=== PATIENT | male | born 1950 | race Hispanic/Latino ===

== ENCOUNTER 2023-10-13 09:13 | Outpatient (CLI) | payer OTHER | END 2023-10-13 09:14 | disposition home or self-care (01) | LOC: BICRAD 09:13 | PROVIDERS: ATTEND Physician Assistant Medical | DX: R10.84 Generalized abdominal pain (principal); R19.7 Diarrhea, unspecified; R60.9 Edema, unspecified; Z86.73 Personal history of transient ischemic attack (TIA), and cerebral infarction without residual deficits | CPT/HCPCS: 74018 ==

== ENCOUNTER 2023-10-14 10:49 | Inpatient (IN) | payer OTHER ==
[~2023-10-14 10:49] MED LIST: GASTROGRAFIN 30 ML BOT ONE; Iopamidol 370 76% 100 ML VIAL ONE
[2023-10-14 11:49] LABS: #Basophils 0.1 thou/uL (0.0-0.2); #Monocytes 0.6 thou/uL (0.11-0.59); #Neutrophils 16.7 thou/uL (1.40-6.50); %Basophils 0.3 % (0.0-1.0); %Eosinophils 0.1 % (0.0-10.0); %Lymphocytes 5.8 % (21.0-51.0); %Neutrophils 90.2 % (42.0-75.0); Hematocrit 48.8 % (42.0-52.0); Hemoglobin 15.8 g/dL (14.0-18.0); Mean Corpuscular HGB CONC 32.4 g/dL (32.0-36.0); Mean Corpuscular Hemoglobin 27.1 pg (27.0-31.0); Mean Corpuscular Volume 83.8 fl (78.0-98.0); Mean Platelet Volume 9.9 fL (7.4-10.4); Platelet Count 502 10x3/uL (130-400); RBC Distribution Width 18.9 % (11.5-14.5); Red Blood Cell (RBC) Count 5.82 mill/uL (4.70-6.10); White Blood Cell (WBC) Count 18.5 10x3/uL (4.8-10.8)
[2023-10-14] MEDS ORDERED: Morphine 4 MG/ML VIAL ONE (12:10)
[2023-10-14 12:13] LABS: Troponin I Less than 0.010 ng/mL (< 0.028)
[2023-10-14 12:14] LABS: ALT (SGPT) 10 U/L (8-55); AST (SGOT) 32 U/L (5-34); Albumin 2.4 g/dL (3.4-4.8); Alkaline Phosphatase 149 U/L (40-110); Anion Gap 21 mmol/L (10-20); BUN (Urea Nitrogen) 28 mg/dL (8.4-25.7); Bilirubin, Total 0.7 mg/dL (0.2-1.2); Calc. Creatinine Clearance 0 mL/min (70-130); Calcium 8.5 mg/dL (7.8-10.44); Carbon Dioxide 22 mmol/L (23-31); Chloride 93 mmol/L (98-107); Estimated GFR 66; Globulin 4.6 g/dL (2.4-3.5); Glucose 85 mg/dL (83-110); Lipase 25 U/L (8-78); Potassium 4.9 mmol/L (3.5-5.1); Sodium 131 mmol/L (136-145)
[2023-10-14 13:22] LABS: Critical Call Chem-Lactate NUR.LH8 @1320
[2023-10-14] MEDS ORDERED: Ondansetron ODT 4 MG TAB PO PRN (13:46)
[2023-10-14] MEDS ORDERED: Senokot S 8.6-50 MG TAB PO PRN (13:46)
[2023-10-14] MEDS ORDERED: Bisacodyl 5 MG TAB PO PRN (13:46)
[2023-10-14] MEDS ORDERED: Cefepime 2 GM VIAL ONE (14:49)
[2023-10-14] MEDS ORDERED: Sodium Chloride 0.9% 100 ML ONE (14:49)
[2023-10-14] MEDS ORDERED: HumaLOG 300 UNITS/3 ML VIAL SC PRN ×2 (14:57)
[2023-10-14] MEDS ORDERED: Dextrose 50% Abboject 50 ML SYRINGE SLOW IVP PRN (14:57)
[2023-10-14] MEDS ORDERED: Glucagon 1 MG/ML KIT IM PRN (14:57)
[2023-10-14] MEDS ORDERED: Dextrose 5% in Water 1,000 ML IV PRN (14:57)
[2023-10-14 15:31] LABS: Actual Bicarbonate (HCO3v) 24.8 mEq/L (22-28); Base Excess -0.2 mEq/L (-2.0 to +3.0); Calcium, Ionized (venous) 0.97 mmol/L (1.16-1.32); Chloride (VBG) 94 mmol/L (98-106); Hematocrit-VBG 42 % (42.0-52.0); Hemoglobin (Hb) 14.4 g/dL (12.6-17.4); Potassium (VBG) 4.71 mmol/L (3.70-5.30)
[2023-10-14] MEDS ORDERED: metroNIDAZOLE 500 MG in Premix 1 BAG IVPB SCH (16:00)
[2023-10-14 16:04] LABS: Lactic Acid 2.9 mmol/L (0.5-2.2)
[2023-10-14 16:13] LABS: Phosphorus 4.7 mg/dL (2.3-4.7)
[2023-10-14 16:14] LABS: Bilirubin, Total 0.5 mg/dL (0.2-1.2); Magnesium 1.6 mg/dL (1.6-2.6)
[2023-10-14 16:24] LABS: INR-International Normal Ratio 1.6; Prothrombin Time 19.2 sec (12.0-14.7)
[2023-10-14 16:25] LABS: PTT 45.7 sec (22.9-36.1)
[2023-10-14] MEDS ORDERED: Sodium Chloride 0.9% 500 ML IV SCH (18:30)
[2023-10-14] MEDS ORDERED: NOREPINEPHRINE 8 MG/250 ML-D5W 250 ML IVPB SCH (18:30)
[2023-10-14] MEDS ORDERED: Magnesium 2 GM/50 ML BAG (IN WATER) ONE ×2 (18:31→23:45)
[2023-10-14] MEDS ORDERED: Acetaminophen 325 MG TAB ONE (18:31)
[2023-10-14] MEDS ORDERED: metroNIDAZOLE 500 MG (100 mL) BAG ONE ×2 (18:32→23:50)
[2023-10-14] MEDS: metroNIDAZOLE 500 MG in Premix 1 BAG IVPB SCH (18:36)
[2023-10-14] MEDS: Acetaminophen 325 MG TAB PO PRN (18:42)
[2023-10-14 18:46] LABS: Lactic Acid 2.4 mmol/L (0.5-2.2)
[2023-10-14 20:26] LABS: Lactic Acid 2.8 mmol/L (0.5-2.2)
[2023-10-14 20:35] LABS: Troponin I 0.041 ng/mL (< 0.028)
[2023-10-14] MEDS ORDERED: Enoxaparin 40 MG (0.4 mL) SYRINGE SC SCH (21:00)
[2023-10-14] MEDS ORDERED: Vancomycin 1 GM in Premix 1 BAG IVPB SCH (21:00)
[2023-10-14] MEDS ORDERED: Enoxaparin 100 MG (1 mL) SYRINGE ONE (21:37)
[2023-10-14] MEDS ORDERED: HYDROcodone/Acetaminophen 5/325 mg Tablet ONE (21:37)
[2023-10-14] MEDS ORDERED: Famotidine 20 MG TAB ONE (21:37)
[2023-10-14] MEDS: Vancomycin (BATCH) 2 GM in Premix 1 BAG IVPB SCH (21:45)
[2023-10-14] MEDS: Magnesium 2 GM/50 ML(in water) 2 GM in Premix 1 BAG IVPB SCH (21:45)
[2023-10-14] MEDS: HYDROcodone/Acetaminophen 5/325 mg Tablet PO PRN (21:46)
[2023-10-14] MEDS: Famotidine 20 MG TAB PO SCH (21:46)
[2023-10-14] MEDS: Enoxaparin 100 MG (1 mL) SYRINGE SC SCH (21:47)
[2023-10-14] MEDS ORDERED: Magnesium 2 GM/50 ML(in water) 2 GM in Premix 1 BAG IVPB SCH (23:30)
[2023-10-14] MEDS: Midodrine HCl 5 MG TAB PO SCH (23:54)
[2023-10-14] MEDS: Albumin 25% 25 GM (100 mL) BOT IVPB SCH (23:54)
[2023-10-15 00:05] LABS: Bacteria/HPF None Seen HPF (None Seen); Bilirubin Negative (Negative); Blood, Urine Negative (Negative); Clarity Turbid (Clear); Glucose, Urine (Dipstick) Normal (Negative); Ketone, Urine Trace mg/dL (Negative); Leukocyte Negative Leu/uL (Negative); Nitrite Negative (Negative); Protein, Urine (Dipstick) 30 mg/dL (Neg-Trace); Squamous Epithelial 0-3 HPF (0-3); Transitional Epithelial 0-3 HPF (None Seen); Urobilinogen Normal mg/dL (Less than 2); WBC/HPF 21-50 HPF (0-3); pH, Urine 5.5 (5.0-9.0)
[2023-10-15 00:09] LABS: Specific Gravity, Urine 1.046 (1.002-1.036)
[2023-10-15 01:11] LABS: Troponin I 0.048 ng/mL (< 0.028)
[2023-10-15] MEDS ORDERED: Cefepime 1 GM VIAL ONE (02:54)
[2023-10-15] MEDS ORDERED: Sodium Chloride 0.9% 100 ML ONE (02:59)
[2023-10-15] MEDS: Cefepime 1 GM in Sodium Chloride 0.9% 100 ML IVPB SCH (03:02)
[2023-10-15 05:01] LABS: #Monocytes 0.6 thou/uL (0.11-0.59); #Neutrophils 17.4 thou/uL (1.40-6.50); %Basophils 0.2 % (0.0-1.0); %Eosinophils 0.1 % (0.0-10.0); %Lymphocytes 4.8 % (21.0-51.0); %Monocytes 3.2 % (0.0-10.0); %Neutrophils 91.3 % (42.0-75.0); Mean Corpuscular HGB CONC 33.3 g/dL (32.0-36.0); Mean Corpuscular Hemoglobin 27.8 pg (27.0-31.0); Mean Corpuscular Volume 83.3 fl (78.0-98.0); Mean Platelet Volume 9.5 fL (7.4-10.4); RBC Distribution Width 17.9 % (11.5-14.5); Red Blood Cell (RBC) Count 3.96 mill/uL (4.70-6.10); White Blood Cell (WBC) Count 19.1 10x3/uL (4.8-10.8)
[2023-10-15 05:06] LABS: Platelet Count 363 10x3/uL (130-400)
[2023-10-15 05:50] LABS: Troponin I 0.046 ng/mL (< 0.028)
[2023-10-15 06:37] LABS: ALT (SGPT) 8 U/L (8-55); AST (SGOT) 19 U/L (5-34); Albumin 2.3 g/dL (3.4-4.8); Alkaline Phosphatase 104 U/L (40-110); Anion Gap 16 mmol/L (10-20); BUN (Urea Nitrogen) 30 mg/dL (8.4-25.7); Bilirubin, Total 0.8 mg/dL (0.2-1.2); Calc. Creatinine Clearance 72 mL/min (70-130); Calcium 7.6 mg/dL (7.8-10.44); Carbon Dioxide 21 mmol/L (23-31); Chloride 97 mmol/L (98-107); Estimated GFR 65; Globulin 2.9 g/dL (2.4-3.5); Glucose 50 mg/dL (83-110); Potassium 4.4 mmol/L (3.5-5.1); Protein, Total 5.2 g/dL (5.8-8.1); Sodium 130 mmol/L (136-145)
[2023-10-15] MEDS: Aspirin 81 mg Enteric Coated Tablet PO SCH (08:28)
[2023-10-15] MEDS: Vancomycin (BATCH) 1.25 GM in Premix 1 BAG IVPB SCH (08:39)
[2023-10-15 19:25] LABS: Fluid, Protein 3.4 g/dL (Not Available)
[2023-10-15 19:37] LABS: RBC Count-Automated (BF) 197459 /cu.mm; WBC/Nucleated-Auto (BF) 554 /cu.mm
[2023-10-15] MEDS: Midodrine HCl 5 MG TAB PO SCH (20:06)
[2023-10-15 20:29] LABS: BF Color Red; Body Fluid Source Ascites Body Fluid; Clarity Cloudy/Turbid (Clear); Tube # EDTA
[2023-10-15 20:31] LABS: BF Segmented Neutrophils 56 %; Cell Count Non Hematic 34 %; Lymphocytes 10 %
[2023-10-16 06:36] LABS: #Eosinphils 0.1 thou/uL (0.0-0.7); #Monocytes 0.5 thou/uL (0.11-0.59); %Basophils 0.2 % (0.0-1.0); %Eosinophils 0.4 % (0.0-10.0); %Lymphocytes 4.2 % (21.0-51.0); %Monocytes 3.2 % (0.0-10.0); %Neutrophils 91.5 % (42.0-75.0); Hemoglobin 11.9 g/dL (14.0-18.0); Mean Corpuscular HGB CONC 33.1 g/dL (32.0-36.0); Mean Corpuscular Hemoglobin 27.4 pg (27.0-31.0); Mean Corpuscular Volume 82.9 fl (78.0-98.0); Mean Platelet Volume 9.7 fL (7.4-10.4); Platelet Count 341 10x3/uL (130-400); Red Blood Cell (RBC) Count 4.34 mill/uL (4.70-6.10); White Blood Cell (WBC) Count 14.2 10x3/uL (4.8-10.8)
[2023-10-16 06:55] LABS: ALT (SGPT) 8 U/L (8-55); AST (SGOT) 21 U/L (5-34); Albumin 2.5 g/dL (3.4-4.8); Alkaline Phosphatase 135 U/L (40-110); Anion Gap 13 mmol/L (10-20); BUN (Urea Nitrogen) 27 mg/dL (8.4-25.7); Bilirubin, Total 0.6 mg/dL (0.2-1.2); Calc. Creatinine Clearance 67 mL/min (70-130); Calcium 7.6 mg/dL (7.8-10.44); Carbon Dioxide 22 mmol/L (23-31); Chloride 98 mmol/L (98-107); Estimated GFR 62; Globulin 2.7 g/dL (2.4-3.5); Glucose 66 mg/dL (83-110); Magnesium 2.1 mg/dL (1.6-2.6); Potassium 3.6 mmol/L (3.5-5.1); Protein, Total 5.2 g/dL (5.8-8.1); Sodium 129 mmol/L (136-145)
[2023-10-16 08:33] LABS: Vancomycin, Trough 26.5 ug/mL
[2023-10-16 13:12] VITALS: BMI 30.4
[2023-10-17 06:14] LABS: #Monocytes 0.5 thou/uL (0.11-0.59); #Neutrophils 11.2 thou/uL (1.40-6.50); %Basophils 0.2 % (0.0-1.0); %Eosinophils 0.2 % (0.0-10.0); %Lymphocytes 6.1 % (21.0-51.0); %Monocytes 3.7 % (0.0-10.0); %Neutrophils 89.3 % (42.0-75.0); Hematocrit 41.7 % (42.0-52.0); Hemoglobin 13.6 g/dL (14.0-18.0); Mean Corpuscular HGB CONC 32.6 g/dL (32.0-36.0); Mean Corpuscular Hemoglobin 27.3 pg (27.0-31.0); Mean Corpuscular Volume 83.7 fl (78.0-98.0); Mean Platelet Volume 10.2 fL (7.4-10.4); Platelet Count 377 10x3/uL (130-400); RBC Distribution Width 18.6 % (11.5-14.5); Red Blood Cell (RBC) Count 4.98 mill/uL (4.70-6.10); White Blood Cell (WBC) Count 12.5 10x3/uL (4.8-10.8)
[2023-10-17 06:30] LABS: INR-International Normal Ratio 1.4; Prothrombin Time 17.6 sec (12.0-14.7)
[2023-10-17 06:44] LABS: ALT (SGPT) 9 U/L (8-55); AST (SGOT) 24 U/L (5-34); Albumin 2.3 g/dL (3.4-4.8); Alkaline Phosphatase 433 U/L (40-110); Anion Gap 14 mmol/L (10-20); BUN (Urea Nitrogen) 30 mg/dL (8.4-25.7); Bilirubin, Total 0.8 mg/dL (0.2-1.2); Calc. Creatinine Clearance 53 mL/min (70-130); Calcium 7.7 mg/dL (7.8-10.44); Carbon Dioxide 23 mmol/L (23-31); Chloride 97 mmol/L (98-107); Estimated GFR 46; Globulin 3.2 g/dL (2.4-3.5); Glucose 83 mg/dL (83-110); Protein, Total 5.5 g/dL (5.8-8.1); Sodium 130 mmol/L (136-145)
[2023-10-17 08:51] LABS: Vancomycin, Random 24.5 ug/mL (See Comment)
[2023-10-17] MEDS ORDERED: Vancomycin (BATCH) 1.25 GM in Premix 1 BAG IVPB SCH (09:00)
[2023-10-17] MEDS ORDERED: Vancomycin 1 GM in Premix 1 BAG IVPB SCH (12:00)
[2023-10-17] MEDS: Sodium Chloride 0.9% 1,000 ML IV SCH (13:28)
[2023-10-17 13:44] LABS: RBC Count-Automated (BF) 3043 /cu.mm; WBC/Nucleated-Auto (BF) 990 /cu.mm
[2023-10-17] MEDS: Morphine 2 MG/ML VIAL SLOW IVP SCH (13:55)
[2023-10-17 14:01] LABS: BF Color Yellow; Body Fluid Source Ascites Body Fluid; Clarity Hazy (Clear); Tube # EDTA
[2023-10-17] MEDS ORDERED: Polyethylene Glycol 3350 17 GM Packet PO PRN (14:02)
[2023-10-17 14:05] LABS: BF Segmented Neutrophils 34 %; Cell Count Non Hematic 14 %; Eosinophils 1 %; Lymphocytes 49 %
[2023-10-17] MEDS: Albumin 25% 25 GM (100 mL) BOT IVPB SCH (14:46)
[2023-10-17] MEDS: Vancomycin 1 GM in Premix 1 BAG IVPB SCH (20:45)
[2023-10-17] MEDS: Senokot S 8.6-50 MG TAB PO SCH (20:45)
[2023-10-18 04:38] LABS: #Monocytes 0.5 thou/uL (0.11-0.59); #Neutrophils 8.4 thou/uL (1.40-6.50); %Basophils 0.2 % (0.0-1.0); %Eosinophils 0.4 % (0.0-10.0); %Lymphocytes 7.5 % (21.0-51.0); %Monocytes 5.5 % (0.0-10.0); Hematocrit 33.2 % (42.0-52.0); Hemoglobin 11.1 g/dL (14.0-18.0); Mean Corpuscular HGB CONC 33.4 g/dL (32.0-36.0); Mean Corpuscular Hemoglobin 27.6 pg (27.0-31.0); Mean Corpuscular Volume 82.6 fl (78.0-98.0); Mean Platelet Volume 10.3 fL (7.4-10.4); Platelet Count 302 10x3/uL (130-400); RBC Distribution Width 18.2 % (11.5-14.5); Red Blood Cell (RBC) Count 4.02 mill/uL (4.70-6.10); White Blood Cell (WBC) Count 9.7 10x3/uL (4.8-10.8)
[2023-10-18 05:09] LABS: ALT (SGPT) 10 U/L (8-55); AST (SGOT) 22 U/L (5-34); Albumin 2.3 g/dL (3.4-4.8); Alkaline Phosphatase 602 U/L (40-110); Anion Gap 13 mmol/L (10-20); BUN (Urea Nitrogen) 31 mg/dL (8.4-25.7); Bilirubin, Total 0.6 mg/dL (0.2-1.2); Calc. Creatinine Clearance 52 mL/min (70-130); Calcium 7.6 mg/dL (7.8-10.44); Carbon Dioxide 22 mmol/L (23-31); Chloride 98 mmol/L (98-107); Estimated GFR 45; Globulin 2.4 g/dL (2.4-3.5); Glucose 90 mg/dL (83-110); Potassium 3.8 mmol/L (3.5-5.1); Protein, Total 4.7 g/dL (5.8-8.1); Sodium 129 mmol/L (136-145)
[2023-10-18] MEDS: Albumin 25% 25 GM (100 mL) BOT IVPB SCH (17:00)
[2023-10-18] MEDS: Sodium Chloride 0.9% 100 ML ONE (17:01)
[2023-10-18] MEDS: Heparin 5,000 UNITS/ML VIAL SC SCH (21:51)
[2023-10-19 05:12] LABS: #Eosinphils 0.1 thou/uL (0.0-0.7); #Monocytes 0.5 thou/uL (0.11-0.59); #Neutrophils 8.5 thou/uL (1.40-6.50); %Basophils 0.4 % (0.0-1.0); %Eosinophils 0.6 % (0.0-10.0); %Lymphocytes 7.8 % (21.0-51.0); %Neutrophils 85.8 % (42.0-75.0); Hematocrit 37.8 % (42.0-52.0); Hemoglobin 12.4 g/dL (14.0-18.0); Mean Corpuscular HGB CONC 32.8 g/dL (32.0-36.0); Mean Corpuscular Hemoglobin 27.2 pg (27.0-31.0); Mean Corpuscular Volume 82.9 fl (78.0-98.0); Mean Platelet Volume 9.7 fL (7.4-10.4); Platelet Count 286 10x3/uL (130-400); RBC Distribution Width 18.8 % (11.5-14.5); Red Blood Cell (RBC) Count 4.56 mill/uL (4.70-6.10); White Blood Cell (WBC) Count 9.9 10x3/uL (4.8-10.8)
[2023-10-19 05:36] LABS: ALT (SGPT) 8 U/L (8-55); AST (SGOT) 19 U/L (5-34); Albumin 2.7 g/dL (3.4-4.8); Alkaline Phosphatase 576 U/L (40-110); Anion Gap 11 mmol/L (10-20); BUN (Urea Nitrogen) 28 mg/dL (8.4-25.7); Bilirubin, Total 0.7 mg/dL (0.2-1.2); Calc. Creatinine Clearance 59 mL/min (70-130); Carbon Dioxide 21 mmol/L (23-31); Chloride 98 mmol/L (98-107); Estimated GFR 49; Globulin 2.2 g/dL (2.4-3.5); Glucose 106 mg/dL (83-110); Magnesium 1.9 mg/dL (1.6-2.6); Potassium 3.6 mmol/L (3.5-5.1); Protein, Total 4.9 g/dL (5.8-8.1); Sodium 126 mmol/L (136-145)
[2023-10-19] MEDS: K-Phos Neutral 250 MG TAB PO SCH (08:58)
[2023-10-19] MEDS: Famotidine 20 MG TAB PO SCH (09:03)
[2023-10-19] MEDS: Sodium Chloride 1 GM TAB PO SCH (09:06)
[2023-10-19] MEDS ORDERED: Senokot S 8.6-50 MG TAB PO PRN (11:05)
[2023-10-19] MEDS ORDERED: Morphine 2 MG/ML VIAL SLOW IVP PRN (11:07)
[2023-10-19] MEDS: Magnesium 2 GM/50 ML(in water) 2 GM in Premix 1 BAG IVPB SCH (12:30)
[2023-10-19] MEDS: Potassium Phosphate 30 MMOL in Sodium Chloride 0.9% 250 ML 250 ML IVPB SCH (15:03)
[2023-10-20 05:58] LABS: #Eosinphils 0.1 thou/uL (0.0-0.7); #Monocytes 0.5 thou/uL (0.11-0.59); #Neutrophils 10.5 thou/uL (1.40-6.50); %Basophils 0.3 % (0.0-1.0); %Eosinophils 0.6 % (0.0-10.0); %Lymphocytes 6.7 % (21.0-51.0); %Monocytes 3.9 % (0.0-10.0); Hematocrit 41.2 % (42.0-52.0); Hemoglobin 13.6 g/dL (14.0-18.0); Mean Corpuscular Hemoglobin 27.8 pg (27.0-31.0); Mean Corpuscular Volume 84.3 fl (78.0-98.0); Mean Platelet Volume 10.1 fL (7.4-10.4); Platelet Count 270 10x3/uL (130-400); Red Blood Cell (RBC) Count 4.89 mill/uL (4.70-6.10); White Blood Cell (WBC) Count 11.9 10x3/uL (4.8-10.8)
[2023-10-20 06:30] LABS: ALT (SGPT) 10 U/L (8-55); AST (SGOT) 17 U/L (5-34); Albumin 2.8 g/dL (3.4-4.8); Alkaline Phosphatase 478 U/L (40-110); Anion Gap 11 mmol/L (10-20); BUN (Urea Nitrogen) 24 mg/dL (8.4-25.7); Bilirubin, Total 0.7 mg/dL (0.2-1.2); Calc. Creatinine Clearance 66 mL/min (70-130); Calcium 8.2 mg/dL (7.8-10.44); Carbon Dioxide 23 mmol/L (23-31); Chloride 100 mmol/L (98-107); Estimated GFR 56; Globulin 2.3 g/dL (2.4-3.5); Glucose 116 mg/dL (83-110); Phosphorus 2.1 mg/dL (2.3-4.7); Potassium 3.5 mmol/L (3.5-5.1); Protein, Total 5.1 g/dL (5.8-8.1); Sodium 130 mmol/L (136-145)
[2023-10-20] MEDS: Potassium Phosphate 30 MMOL in Sodium Chloride 0.9% 500 ML IVPB SCH (10:15)
[2023-10-20] MEDS ORDERED: Senokot S 8.6-50 MG TAB PO PRN (10:45)
[2023-10-21 06:52] LABS: #Basophils 0.1 thou/uL (0.0-0.2); #Eosinphils 0.1 thou/uL (0.0-0.7); #Monocytes 0.7 thou/uL (0.11-0.59); %Basophils 0.6 % (0.0-1.0); %Eosinophils 0.5 % (0.0-10.0); %Lymphocytes 10.1 % (21.0-51.0); %Monocytes 5.1 % (0.0-10.0); Hematocrit 47.8 % (42.0-52.0); Hemoglobin 15.4 g/dL (14.0-18.0); Mean Corpuscular HGB CONC 32.2 g/dL (32.0-36.0); Mean Corpuscular Hemoglobin 27.1 pg (27.0-31.0); Mean Corpuscular Volume 84.2 fl (78.0-98.0); Mean Platelet Volume 10.1 fL (7.4-10.4); Platelet Count 248 10x3/uL (130-400); RBC Distribution Width 20.5 % (11.5-14.5); Red Blood Cell (RBC) Count 5.68 mill/uL (4.70-6.10); White Blood Cell (WBC) Count 13.2 10x3/uL (4.8-10.8)
[2023-10-21 07:40] LABS: AST (SGOT) 20 U/L (5-34); Albumin 2.6 g/dL (3.4-4.8); Alkaline Phosphatase 463 U/L (40-110); Anion Gap 16 mmol/L (10-20); BUN (Urea Nitrogen) 29 mg/dL (8.4-25.7); Bilirubin, Total 0.8 mg/dL (0.2-1.2); Calc. Creatinine Clearance 62 mL/min (70-130); Calcium 8.4 mg/dL (7.8-10.44); Carbon Dioxide 16 mmol/L (23-31); Chloride 105 mmol/L (98-107); Estimated GFR 51; Globulin 2.7 g/dL (2.4-3.5); Glucose 155 mg/dL (83-110); Phosphorus 3.4 mg/dL (2.3-4.7); Potassium 4.2 mmol/L (3.5-5.1); Protein, Total 5.3 g/dL (5.8-8.1); Sodium 133 mmol/L (136-145)
[2023-10-21 08:30] LABS: ALT (SGPT) 10 U/L (8-55)
[2023-10-21] MEDS ORDERED: Polyethylene Glycol 3350 17 GM Packet PO PRN (14:00)
[2023-10-21] MEDS: Sodium Bicarbonate Tab 325 MG TAB PO SCH (15:23)
[2023-10-21] MEDS: K-Phos Neutral 250 MG TAB PO SCH (17:19)
[2023-10-21] MEDS: Albumin 25% 25 GM (100 mL) BOT IVPB SCH (17:52)
[2023-10-22 07:25] LABS: #Eosinphils 0.1 thou/uL (0.0-0.7); #Monocytes 0.5 thou/uL (0.11-0.59); %Basophils 0.4 % (0.0-1.0); %Eosinophils 1.2 % (0.0-10.0); %Lymphocytes 7.2 % (21.0-51.0); %Monocytes 5.7 % (0.0-10.0); %Neutrophils 84.9 % (42.0-75.0); Mean Corpuscular Hemoglobin 27.8 pg (27.0-31.0); Mean Corpuscular Volume 84.4 fl (78.0-98.0); Mean Platelet Volume 10.2 fL (7.4-10.4); Platelet Count 183 10x3/uL (130-400); RBC Distribution Width 19.8 % (11.5-14.5); Red Blood Cell (RBC) Count 4.17 mill/uL (4.70-6.10); White Blood Cell (WBC) Count 9.5 10x3/uL (4.8-10.8)
[2023-10-22 07:36] LABS: Hematocrit 35.2 % (42.0-52.0); Hemoglobin 11.6 g/dL (14.0-18.0)
[2023-10-22 07:45] LABS: Anion Gap 14 mmol/L (10-20); BUN (Urea Nitrogen) 31 mg/dL (8.4-25.7); Calc. Creatinine Clearance 63 mL/min (70-130); Calcium 8.5 mg/dL (7.8-10.44); Carbon Dioxide 20 mmol/L (23-31); Chloride 104 mmol/L (98-107); Estimated GFR 53; Glucose 123 mg/dL (83-110); Potassium 3.7 mmol/L (3.5-5.1); Sodium 134 mmol/L (136-145)
[2023-10-22] MEDS ORDERED: PROPOFOL 20 ML ONE (11:29)
[2023-10-22] MEDS ORDERED: Lidocaine 2% PF 5 ML VIAL ONE ×2 (11:29→11:43)
[2023-10-22] MEDS ORDERED: EPINEPHrine 1 MG/ML VIAL ONE (11:43)
[2023-10-22] MEDS ORDERED: Bupivacaine 0.25% HCL 30 ML VIAL ONE (11:43)
[2023-10-22] MEDS ORDERED: Ondansetron PF 4 MG/2 ML Vial ONE (12:14)
[2023-10-22] MEDS ORDERED: ePHEDrine Sulfate 50 MG/10 ML VIAL ONE (12:14)
[2023-10-23 04:21] VITALS: TEMP 97.6
[2023-10-23 16:50] VITALS: BP 115/74
== END 2023-10-23 17:37 | disposition home health service (06) | DRG 854 ==
LOC: ERS 10:49 → ERHOLD 13:40 → IMCU/EMU 10-15 07:55 → 2NO 10-18 00:32 → MSONC 10-19 15:10
PROVIDERS: ADMIT Internal Medicine; ATTEND Internal Medicine
PROC: 3E033XZ Introduction of Vasopressor into Peripheral Vein, Percutaneous Approach (ICD-10-PCS; 2023-10-14)
PROC: 3E03329 Introduction of Other Anti-infective into Peripheral Vein, Percutaneous Approach (ICD-10-PCS; 2023-10-14)
PROC: 30233J1 Transfusion of Nonautologous Serum Albumin into Peripheral Vein, Percutaneous Approach (ICD-10-PCS; 2023-10-14)
PROC: 0W9G3ZX Drainage of Peritoneal Cavity, Percutaneous Approach, Diagnostic (ICD-10-PCS; principal; 2023-10-15)
PROC: 0DBU3ZX Excision of Omentum, Percutaneous Approach, Diagnostic (ICD-10-PCS; 2023-10-17)
PROC: 0W9G3ZZ Drainage of Peritoneal Cavity, Percutaneous Approach (ICD-10-PCS; 2023-10-17)
PROC: 0JH60WZ Insertion of Totally Implantable Vascular Access Device into Chest Subcutaneous Tissue and Fascia, Open Approach (ICD-10-PCS; 2023-10-22)
PROC: 02HV33Z Insertion of Infusion Device into Superior Vena Cava, Percutaneous Approach (ICD-10-PCS; 2023-10-22)
DX: A41.9 Sepsis, unspecified organism (principal); C45.1 Mesothelioma of peritoneum; C78.6 Secondary malignant neoplasm of retroperitoneum and peritoneum; R18.8 Other ascites; E87.20 Acidosis, unspecified; E87.1 Hypo-osmolality and hyponatremia; N17.9 Acute kidney failure, unspecified; I87.1 Compression of vein; R18.0 Malignant ascites; I50.32 Chronic diastolic (congestive) heart failure; I13.0 Hypertensive heart and chronic kidney disease with heart failure and stage 1 through stage 4 chronic kidney disease, or unspecified chronic kidney disease; R65.20 Severe sepsis without septic shock; C45.7 Mesothelioma of other sites; E78.5 Hyperlipidemia, unspecified; I48.0 Paroxysmal atrial fibrillation; D75.839 Thrombocytosis, unspecified; K80.20 Calculus of gallbladder without cholecystitis without obstruction; N18.2 Chronic kidney disease, stage 2 (mild); E11.22 Type 2 diabetes mellitus with diabetic chronic kidney disease; E88.09 Other disorders of plasma-protein metabolism, not elsewhere classified; E11.649 Type 2 diabetes mellitus with hypoglycemia without coma; Z79.899 Other long term (current) drug therapy; Z86.73 Personal history of transient ischemic attack (TIA), and cerebral infarction without residual deficits; Z98.890 Other specified postprocedural states; Z79.82 Long term (current) use of aspirin; Z79.84 Long term (current) use of oral hypoglycemic drugs; R10.84 Generalized abdominal pain; R19.7 Diarrhea, unspecified
CPT/HCPCS: 36415; 36416; 49060; 49083; 71045; 74018; 74177; 76705; 77012; 80048; 80053; 80202; 81001; 82042; 82105; 82247; 82248; 82378; 82805; 82945; 83605; 83690; 83735; 83880; 83930; 83935; 84100; 84145; 84157; 84300; 84484; 84702; 85025; 85060; 85610; 85730; 86301; 87040; 87070; 87205; 88112; 88305; 88307; 88333; 88334; 88341; 88342; 89051; 93005; 93306; 93923; 93970; 96374; 96375; C1788; J0171; J0665; J0692; J1642; J1644; J1650; J2001; J2270; J2405; J2704; J3370; J3370-JW; J3475; J3490; J7030; J7050; P9047; Q9963; Q9967

== ENCOUNTER 2023-11-07 09:06 | Outpatient (CLI) | payer OTHER | END 2023-11-07 09:07 | disposition home or self-care (01) | LOC: BICCT 09:06 | PROVIDERS: ATTEND Internal Medicine Hematology & Oncology | DX: C45.1 Mesothelioma of peritoneum (principal); J90 Pleural effusion, not elsewhere classified; J98.11 Atelectasis; C48.2 Malignant neoplasm of peritoneum, unspecified | CPT/HCPCS: 71260 ==